=== PATIENT | male | born 1980 | race African-American/Black ===

== ENCOUNTER 2020-12-19 08:37 | Emergency (ER) | payer OTHER ==
[~2020-12-19] VITALS: Ht 167.6 cm; Wt 81.7 kg
--- NOTE | ~2020-12-19 | EMS ---
[address] [address] EMS Patient Care Report Name: GLORIA CEJA Room #: DEP ANTWAN Guan#: [id number] Admission: 12/19/20 Attend Phys: Discharge: 12/19/20 Date of : 80 Report #: [id number] THIS REPORT FOR: //name// Report Transmitted: 01/02/2021 14:14 EMS Care Summary [place], [place]/[facility] Incident [phone] @ 12/19/2020 08:13 Incident Location [address] [place] [address] Patient GLORIA CEJA Male, 40 Years 1980 Patient Address [address] [phone] Patient History None Reported, Patient Allergies No known allergies, Patient Medications None Reported, Chief Complaint short of breath Disposition Transported No Lights/Sharon Dispatch Reason Breathing Problem Transported To [facility] Narrative ARRIVED TO FIND PT WALKING OUT TO AMBULANCE. PT STEPS INSIDE, SITS ON BENCH. PT BECOME BELIGERANT WITH EMS, INSISTS ON SITTING ON COT. PT PLACED ON COT, SECURED WITH STRAPS X2. ALS ASSESSMENT VITALS OBTAINED. PT PRESENTS WITH NORMAL RATE OF BREATHING, CLEAR LUNG SOUNDS, 100% ON ROOM AIR. PT STATES "IF I EVER [address] [address] EMS Patient Care Report Name: GLORIA CEJA Room #: DEP Roge#: [id number] Admission: 12/19/20 Attend Phys: Discharge: 12/19/20 Date of : [birth year] Report #: [id number] SEE YOU ON THE STREETS, IM GOING TO WIPE YOUR MOTHERFUCKING ASS." PT THEN COMPLAINS THAT HIS CHEST HURTS, 12-LEAD WITHHEALD TO ENSURE SAFETY OF CREW, AFTER THREATS MADE BY PT. PT CONTINUES TO MAKE TREATENING REMARKS TO EMS FOR DURATION OF TRANSPORT. ARRIVED. PT TAKEN INSIDE ON COT TO ER 4. PT STEPS TO BED WITHOUT DIFFICULTY. REPORT GIVEN TO NURSE, PT CARE TRANSFERRED. Initial Vitals @08:25P: 137,R: 16,Pain: 0/10,GCS: 15,CO: 8,SpO2: 100, @08:19P: 103,R: 16,BP: 119/83,Pain: 0/10,GCS: 15,SpO2: 100,Revised Trauma: 12, Assessments @08:19MENTAL:Person Oriented,Time Oriented,Event Oriented,Place Oriented,SKIN:HEENT:Head/Face: No Abnormalities,Neck/Airway: No Abnormalities,LUNG SOUNDS:General: No Abnormalities,ABDOMEN:General: No Abnormalities,PELVIS//GI:No Abnormalities,EXTREMITIES:Left Arm: No Abnormalities,Right Arm: No Abnormalities,Left Leg: No Abnormalities,Right Leg: No Abnormalities,PULSE:Radial: 2+ Normal,NEURO:No Abnormalities, Impression Shortness of breath Procedures @08:19ALS AssessmentResponse: UnchangedSucceeded Timeline 08:11,Call Received 08:11,Dispatch Notified 08:13,Dispatched 08:16,En Route 08:18,On Scene 08:19,At Patient 08:19,ALS Assessment,Response: UnchangedSucceeded, 08:19,BP: 119/83 M,PULSE: 103,RR: 16 R,SPO2: 100 Ox,ETCO2: ,BG: ,PAIN: 0,GCS: 15, 08:22,Depart Scene 08:25,BP: / M,PULSE: 137,RR: 16 R,SPO2: 100 Ox,ETCO2: ,BG: ,PAIN: 0,GCS: 15, 08:33,At Destination 08:45,Call Closed Disclaimer v1.1 Copyright 2020 [employer] This EMS Care Summary contains data elements from the applicable legal record (which may be displayed differently). It is designed to provide pertinent information for the following purposes: continuity of care, clinical quality, [address] [address] EMS Patient Care Report Name: GLORIA CEJA Room #: DEP ANTWAN Guan#: [id number] Admission: 12/19/20 Attend Phys: Discharge: 12/19/20 Date of : [birth year] Report #: [id number] and state data reporting. The complete legal record is available to ED staff and administrators of the receiving hospital in [employer]'s Patient Tracker. All data is provided "as is."
[2020-12-19 09:07] LABS: EOSINOPHILS 0.5 % (0.0-3.0); MCH 30.3 pg (26.0-34.0); MONOCYTES 15.2 % (1.0-8.0); RDW 14.6 % (10.5-14.5); WBC 9.6 thou/uL (4.0-11.0)
[2020-12-19 09:08] LABS: ABSOLUTE NEUTROPHILS 5.5 thou/uL (1.4-8.2); BASOPHILS 0.7 % (0.0-2.0); HEMATOCRIT 42.7 % (42.0-52.0); HEMOGLOBIN 14.4 gm/dL (14.0-18.0); LYMPHOCYTES 26.7 % (24.0-44.0); MCHC 33.8 g/dL (28.0-37.0); MCV 89.9 fL (80.0-100.0); PLATELET COUNT 348 thou/uL (150-400); POLYS 56.9 % (36.0-66.0); RBC 4.75 mil/uL (4.50-6.00)
[2020-12-19 09:14] LABS: ANION GAP 8 mmol/L (7-16); BUN 17 mg/dL (7-18); CALCIUM 8.8 mg/dL (8.5-10.1); CHLORIDE 102 mmol/L (98-107); CO2 27 mmol/L (21-32); GLUCOSE 99 mg/dL (74-106); POTASSIUM 3.6 mmol/L (3.5-5.1); SODIUM 137 mmol/L (136-145)
[2020-12-19 09:20] LABS: DIRECT BILIRUBIN 0.1 mg/dL (<0.1-0.2); SALICYLATE < 2.8 mg/dL (2.8-20.0); SGOT 15 U/L (15-37); SGPT 20 U/L (16-63); TOTAL BILIRUBIN 0.5 mg/dL (0.2-1.0); TOTAL PROTEIN 7.4 g/dL (6.4-8.2)
[2020-12-19 09:38] LABS: AMP/METHAMP Negative (Negative); BARBITURATES Negative (Negative); BENZODIAZEPINES Negative (Negative); COCAINE Negative (Negative); METHADONE Negative (Negative); OPIATES Negative (Negative); PCP Negative (Negative)
--- NOTE | 2020-12-19 09:41 | EKG ---
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
[2020-12-19 09:55] VITALS: BP 145/82
== END 2020-12-19 09:55 | disposition home or self-care (01) ==
LOC: ER 08:37
PROVIDERS: Emergency Medicine
DX: F19.10 Other psychoactive substance abuse, uncomplicated (principal); R41.82 Altered mental status, unspecified